=== PATIENT | female | born 1965 | race Caucasian/White ===

== ENCOUNTER 2019-09-11 17:24 | Emergency (ER) | payer OTHER ==
[~2019-09-11] VITALS: Ht 157.5 cm; Wt 68.0 kg
[2019-09-11] MEDS ORDERED: ACETAMINOPHEN ES 500 MG TABLET ONE (17:41)
[2019-09-11] MEDS ORDERED: ACETAMINOPHEN ES 500 MG TABLET PO ONE (17:45)
--- NOTE | 2019-09-11 18:06 | NUR ---
Patient discharged to home in stable conditon. Written and verbal after care instructions given. Patient verbalizes understanding of instructions.
== END 2019-09-11 18:07 | disposition home or self-care (01) ==
LOC: ER 17:29
DX: M25.561 Pain in right knee (principal)
CPT/HCPCS: A4663; A9150